=== PATIENT | female | born 1960 | race Caucasian/White ===

== ENCOUNTER 2019-08-05 14:57 | Emergency (ER) | payer BC ==
[~2019-08-05] VITALS: Ht 160 cm; Wt 77.1 kg
[2019-08-05] MEDS ORDERED: BUPROPION HCL100 MG PO (15:11)
[2019-08-05] MEDS ORDERED: BRINTELLIX20 MG PO (15:12)
[2019-08-05] MEDS ORDERED: XANAX1 MG PO (15:12)
[2019-08-05] MEDS ORDERED: LIPITOR20 MG PO (15:12)
[2019-08-05] MEDS ORDERED: OMEPRAZOLE 20 M20 M1 PO (15:12)
[2019-08-05] MEDS ORDERED: TRAZODONE HCL100 MG PO (15:13)
[2019-08-05] MEDS ORDERED: QUETIAPINE FUM100 MG PO (15:14)
[2019-08-05] MEDS ORDERED: TYLENOL WITH CO1 TA1 PO (16:51)
[2019-08-05] MEDS ORDERED: IBUPROFEN 800800 M1 PO (16:52)
[2019-08-05 17:23] VITALS: BP 149/65
== END 2019-08-05 17:23 | disposition home or self-care (01) ==
LOC: M.ERS 14:57
DX: M25.461 Effusion, right knee (principal); J44.9 Chronic obstructive pulmonary disease, unspecified; Z96.653 Presence of artificial knee joint, bilateral; Z90.710 Acquired absence of both cervix and uterus